=== PATIENT | female | born 1940 | race Two or more races ===

== ENCOUNTER → 2017-06-12 | Outpatient (CLI) | payer OTHER | LOC: CIMAGING 15:04 | PROVIDERS: ATTEND Family Medicine | DX: M79.671 Pain in right foot (principal) | CPT/HCPCS: 73630-PO ==

== ENCOUNTER 2017-07-25 10:35 | Inpatient (IN) | payer OTHER ==
[2017-07-25] MEDS ORDERED: LIDOCAINE 1% 2 ML INJ ID PRN (11:16)
[2017-07-25] MEDS ORDERED: LR 1,000 ML IV ONE (11:16)
[2017-07-25] MEDS ORDERED: MIDAZOLAM 2 MG/2 ML VIAL ONE (11:48)
[2017-07-25] MEDS ORDERED: MIDAZOLAM 2 MG/2 ML VIAL IVP ONE (11:49)
--- NOTE | 2017-07-25 12:27 | PDANEPAE ---
ANE History of Present Illness 76 year old female right ankle arthroplsty. ANE Past Medical History - Cardiovascular History Hx Hypertension: Yes Hx Arrhythmias: No Hx Chest Pain: No Hx Coronary Artery / Peripheral Vascular Disease: No Hx CHF / Valvular Disease: No Hx Palpitations: No - Pulmonary History Hx COPD: No Hx Asthma/Reactive Airway Disease: Yes Hx Recent Upper Respiratory Infection: No Hx Oxygen in Use at Home: No Hx Sleep Apnea: No Sleep Apnea Screening Result - Last Documented: Negative Pulmonary History Comment: uses Flovent PRN-w/URI - Neurologic History Hx Cerebrovascular Accident: No Hx Seizures: No Hx Dementia: No - Endocrine History Hx Diabetes: No Hypothyroid: Yes Endocrine History Comment: hypothyroid- on RX - Renal History Hx Renal Disorders: No - Liver History Hx Hepatic Disorders: No - Neurological & Psychiatric Hx Hx Neurological and Psychiatric Disorders: No - Cancer History Hx Cancer: No - Congenital Disorder History Hx Congenital Disorders: No - GI History Hx Gastrointestinal Disorders: No Gastrointestinal History Comment: occ heartburn - Other Health History Other Health History: OA R ankle. osteopenia - Chronic Pain History Chronic Pain: Yes - Surgical History Prior Surgeries: R ankle fx '04 ANE Review of Systems Review of systems is: negative Review of Systems: - Exercise capacity Exercise capacity: >=4 METS METS (RN): 4 METS ANE Patient History - Allergies Allergies/Adverse Reactions: oxycodone [From OxyContin] Allergy (Verified 07/19/17 16:21) Vomiting oxycodone HCl [From Percocet] Allergy (Verified 07/19/17 16:21) Vomiting - Home Medications Home medications: home medication list seen and reviewed Home Medications: Flovent Diskus 07/19/17 [Last Taken 07/23/17] Hydrochlorothiazide 07/19/17 [Last Taken 07/25/17 07:30] Levoxyl 07/19/17 [Last Taken 07/25/17 07:30] Montelukast Sodium 07/19/17 [Last Taken 07/11/17] - NPO status NPO Status: no food or drink >8 hours NPO Since - Liquids (Date): 07/25/17 NPO Since - Liquids (Time): 07:30 NPO Since - Solids (Date): 07/24/17 NPO Since - Solids (Time): 20:00 - Anes Hx Anes Hx: no prior problems - Smoking Hx Smoking Status: Never smoked Marijuana use: No - Alcohol Use Alcohol Use: None - Family Anes Hx Family Anes Hx: neg - N/A ANE Labs/Vital Signs - Vital Signs Vital Signs: reviewed preoperatively; see RN documention for details Blood Pressure: 153/93 Heart Rate: 72 Respiratory Rate: 18 O2 Sat (%): 92 Height: 157.48 cm Weight: 81.647 kg ANE Physical Exam - Airway Neck exam: FROM Mallampati Score: Class 3 Mouth exam: dentures Mouth image: 1 - veneers - Pulmonary Pulmonary: no respiratory distress - Cardiovascular Cardiovascular: regular rate and rhythym - ASA Status ASA Status: II ANE Anesthesia Plan Anesthesia Plan: general endotracheal anesthesia, GA w LMA Total IV Anesthesia: No
[2017-07-25] MEDS ORDERED: ceFAZolin 2 GM/SWFI 2 GM/20 ML SYR IVP ONE (12:30)
--- NOTE | 2017-07-25 12:30 | PDHPUP ---
History & Physical Update H&P update statement: This history and physical update is based on an assessment of the patient which was completed after admission or registration (within 24 hours), but prior to the surgery/procedure.
[2017-07-25] MEDS ORDERED: PROPOFOL 200 MG/20 ML VIAL ONE (13:02)
[2017-07-25] MEDS ORDERED: fentaNYL 100 MCG/2 ML INJ ONE (13:02)
[2017-07-25] MEDS ORDERED: ROCURONIUM 50 MG/5 ML VIAL ONE (13:20)
[2017-07-25] MEDS ORDERED: DEXAMETHASONE 4 MG/ML VIAL ONE (13:20)
[2017-07-25] MEDS ORDERED: LIDOCAINE 2% 5 ML SDV ONE (13:20)
[2017-07-25] MEDS ORDERED: ONDANSETRON 4 MG/2 ML VIAL ONE (13:20)
[2017-07-25] MEDS ORDERED: fentaNYL 100 MCG/2 ML INJ IVP PRN (15:49)
[2017-07-25] MEDS ORDERED: HYDROCODONE/APAP 5/325 TAB PO PRN (15:49)
[2017-07-25] MEDS ORDERED: NALOXONE HCL 0.4 MG/ML INJ IVP PRN (15:49)
[2017-07-25] MEDS ORDERED: ONDANSETRON 4 MG/2 ML VIAL IVP PRN (15:49)
[2017-07-25] MEDS ORDERED: epHEDrine SULFATE 10 MG/ML SYR IVP PRN (15:49)
[2017-07-25] MEDS ORDERED: LABETALOL HCL 5 MG/ML 20 ML MDV IVP PRN (15:49)
[2017-07-25] MEDS ORDERED: PHENYLEPHRINE HCL 100 MCG/ML SYR IVP PRN (15:49)
[2017-07-25] MEDS ORDERED: LR 500 ML IV PRN (15:49)
[2017-07-25] MEDS ORDERED: HYDROmorphONE/DILAUDID 1 MG/ML INJ IVP PRN (16:53)
[2017-07-25] MEDS ORDERED: oxyCODONE IR 5 MG TAB PO PRN (16:53)
--- NOTE | 2017-07-25 16:56 | POSTOPPROG ---
Post Op Note Date of Operation: 07/25/17 Surgeon: Steven Tobar Counseling Director: Lali Anesthesia: GET(General Endotracheal) Pre-op Diagnosis: R ankle djd Post-op Diagnosis: same Indication: above Procedure: R TAA Findings: djd Inf/Abcess present in the surg proc area at time of surgery?: No EBL: 50-100
[2017-07-25] MEDS ORDERED: ROPIVACAINE 0.2% 1,100 MG in PUMP SET 1 EA NB SCH (18:30)
--- NOTE | 2017-07-25 18:45 | POSTANESTH ---
Post Anesthetic Evaluation Cardiovascular Status: Normal, Stable, Similar to Pre-Op Cond Respiratory Status: Normal, Stable, Similar to Pre-op Cond. Level of Consciousness/Mental Status: Can Participate in Eval, Alert and Oriented Pain Control: Adequate, Prn Tx Ordered Nausea/Vomiting Control: Adequate, Prn Tx Ordered Complications Possibly Related to Anesthesia: None Noted
[2017-07-25 21:34] VITALS: RESP 16
[2017-07-25] MEDS: ceFAZolin 2 GM/DEXTROSE 100 ML IV SCH (21:53)
[2017-07-26] MEDS: ceFAZolin 2 GM/DEXTROSE 100 ML IV SCH (05:10)
--- NOTE | 2017-07-26 06:54 | SOAPPROG ---
SOAP Progress Note Assessment/Plan: Assessment: POD 1 right total ankle arthroplasty. Doing well. PNB catheter in place. Plan: Patient instructions given for home care of PNB catheter. Ok for discharge from a pain control standpoint. Thanks for the opportunity to care for Ms. Arshad call with questions or concerns. 07/26/17 06:55 07/26/17 06:55 Subjective: Patient seen and examined on the floor. Doing well. Denies pain in the RLE. POD 1 s/p right total ankle arthroplasty. She received single shot popliteal and adductor canal blocks blocks in the preop and a popliteal nerve catheter after the procedure. The ON-Q pump is running at 10cc/hr of 0.2% Ropivicaine. She denies signs of LAST. Has not taken any PRN pain medications. Due for d/c home later this morning. Objective: Vital Signs Temp Pulse Resp BP Pulse Ox 37.1 C 101 H 16 130/62 H 98 07/26/17 03:33 07/26/17 03:33 07/26/17 03:33 07/26/17 03:33 07/26/17 03:33 Laboratory Results 07/26/17 05:25 07/25/17 07/26/17 07/27/17 05:59 05:59 05:59 Intake Total 1000 Output Total 30 Balance 970 Physical Exam - Physical Exam General Appearance: no apparent distress Cardiac/Chest: normal peripheral pulses Skin: warm/dry Neuro/Psych: other (Asensate to light touch in RLE) ICD10 Worksheet Patient Problems: Problems Problem Status Onset Post-operative pain Acute - ICD10 Problem Qualifiers (1) Post-operative pain
[2017-07-26] MEDS ORDERED: ENOXAPARIN 40 MG/0.4 ML SYR SC SCH (09:00)
--- NOTE | 2017-07-26 10:15 | GOP ---
[f rep st] OPERATIVE REPORT DATE OF OPERATION: 07/25/2017 SURGEON: Steven Tobar MD LOAN REVIEW ANALYST: Armando Escalera SA ANESTHESIA: General with popliteal and saphenous block. PREOPERATIVE DIAGNOSIS: Right ankle degenerative joint disease, Achilles contracture. Retained painf ul hardware. POSTOPERATIVE DIAGNOSIS: Right ankle degenerative joint disease, Achilles contracture. Retained pain ful hardware. PROCEDURE PERFORMED: 1. Right total ankle replacement. 2. Right gastrocnemius recession, "Meka procedure.". 3. Right ankle hardware removal, part through separate incision. FINDINGS: SPECIMENS: None. ESTIMATED BLOOD LOSS: 50 mL. INDICATIONS: This a 76-year-old female with advanced end-stage ankle arthritis and deformity, as wel l as flexion contractures and significant pain. Obtained x-rays and CT scan. Counseled her on the ope rative intervention as above. We discussed risks of nerve injury, implant failure, loosening, need fo r fusion, continued pain, need for further hardware removal or failure, need for revision and she apolonia cted to proceed. Informed consent obtained. All questions answers. She was marked preoperatively. DESCRIPTION OF PROCEDURE: She was taken to the operative suite. After a block had been administered per Anesthesia, she was given 2 g Ancef. She was sterilely prepped and draped in normal fashion. Time -out was performed verifying the site, side, location, and there was agreement with the rest of the t eam. She was prepped and draped in normal fashion. Tourniquet was utilized after Esmarch exsanguination. I made an incision over the medial gastroc for a Meka, dissected down the fascia, opened this, prot ected the fascia and neurovascular structures, released the gastroc myotendinous junction, achieving extra dorsiflexion by my financial planning assistant. This wound was thoroughly irrigated and closed later. The anterior approach was made to the ankle over the ankle. I protected neurovascular bundle, worked between the tib ant and the EHL, protecting both the deep and the superficial neurovascular structure s. Dissected down to the ankle which was extremely arthritic. I removed osteophytes with a rongeur an d chisel. I did a deltoid release to help correct deformity and expose the ankle joint. I removed the medial screws through this incision. Through a small lateral incision, separate incision, I removed 2 lateral screws that were in the lateral joint. I made a small hole by the knee for the pin for the guide, placed this pin and then placed the guide over the ankle. I adjusted this fluoroscopically and visually. Pinned this into place, adjusted the height of this and adjusted the length, alignment, an d rotation of this and locked this into place. I sized her out at a 0 and elected for a Leila Talaris 2.1 instrumentation. I placed this cutting block on the tibia and locked it into place. I confirmed this, placed the pins in this for the gutter cuts and then made the tibial cut and then finished the gutter cuts. I removed the anterior portion of the bone. I then put the ankle in a neutral position, used the talar guide, placed this pin. I then used the talus and the paddles, placed this down the tibia and pinned this an d then cut the talus for the posterior cut. I then removed this, placed the anterior guide, pinned t his into position, checked this fluoroscopically and did the anterior reaming. This bone was later us ed for bone graft. I then finished this portion by hand with a rongeur. I placed a lateral chamfer guide on this, pinned this into place, made the plug hole for the 0 talus and then the lateral chamfer guide. I thoroughly irrigated this, removed all the bone off the tibia and talus sides. I cleaned out the gutters from f urther deltoid release. I selected the final implants and irrigated this after trialing this, and preparing the tibia, keel h ole and slot holes. I then placed the talus and checked the rotation of this and then I malleted this into position. It was stable. I selected the 8 mm poly with the tibia, placed this, locked this into the tibia and placed the tibial component obtaining x-rays as I went. This was implanted in a stable position. Her ankle had good range of motion and good alignment and stability. She was thoroughly ir rigated. Tourniquet was released. I closed the wounds with #1 Vicryl, 0 Vicryl, 2-0 Vicryl, 3-0 Quill , and Dermabond. She was taken to PACU in a splint in stable condition. IMPLANTS: A Leila Talaris 0 tibia, 0 talus and 8 mm double-0 poly. COMPLICATIONS: None. DRAINS: None. CONDITION: Stable. /[id number]/MODL
[2017-07-26] MEDS: HYDROCODONE/APAP 5/325 TAB PO PRN ×2 (13:41→17:35)
--- NOTE | 2017-07-26 14:14 | PDIAF ---
- Diagnosis Code Status: Full Code - Medication Management Discharge Medications: Medications to Continue on Transfer Fluticasone Hfa 110 Mcg [Flovent 110 MCG Hfa MDI (*)] 1 puffs IH BID PRN [Last Taken 07/18/17] Hydrochlorothiazide [HCTZ (*)] 12.5 mg PO DAILY 07/25/17 [Last Taken 07/25/17] Levothyroxine [Synthroid 25 mcg (*)] 25 mcg PO DAILY06 07/25/17 [Last Taken 04/03] Multivitamins [Multivitamin (*)] 1 each PO DAILY 07/25/17 [Last Taken Unknown] Aspirin EC [Aspirin EC 325 mg (*)] 325 mg PO DAILY #14 tab 07/26/17 [Last Taken Unknown] Hydrocodone/APAP 5/325 [[place] 5/325 (*)] 1 - 2 tab PO Q6 PRN tab 07/26/17 [ Last Taken Unknown] oxyCODONE IR [Oxycodone Ir (*)] 5 - 10 mg PO Q4HRS PRN tab 07/26/17 [Last Taken Unknown] Discharge Medications: Refer to the Discharge Home Medication list for PRN reason. - Orders Services needed: Registered Nurse, Certified Independent Jeweler, Physical Therapy, Occupational Therapy Diet Recommendation: no restrictions on diet Diet Texture: Regular Texture Diet Activity/Weight Bearing Restrictions: RLE non wt bearing. ice. elevate. keep dry. f/u as scheduled - Follow Up Care Current Providers and Referrals: Yessenia Ortiz DO [Primary Care Provider] -
--- NOTE | 2017-07-26 14:46 | GDS ---
[f rep st] DISCHARGE SUMMARY REASON FOR HOSPITALIZATION: Status post right total ankle replacement. HOSPITAL COURSE: She was admitted after a right total ankle replacement. She recovered well, having her pain controlled, and met criteria for discharge to a ch[facility] facility. She otherwise wa s doing quite well. PROCEDURE PERFORMED: Right total ankle replacement. CONSULTING PHYSICIANS: None. DISPOSITION: Skilled nurse facility [facility]. She was sent out on her previous home medicat ion and given prescriptions for oxycodone for pain medication. She did have this listed as an allerg y; however, this was for nausea, and we gave her antiemetics, and she did fine with this. She is to elevate the right lower extremity. She is nonweightbearing. She will keep this dry. She will take 1 aspirin 325 mg p.o. daily for 2 weeks for DVT prophylaxis. She is to call or come back to the hosp ital if she has symptoms of chest pain, shortness of breath, with concern for blood clot or other con cerns. /[id number]/MODL
--- NOTE | 2017-07-26 15:21 | ASMTCMCOM ---
CM Note CM Note Notes: Pt medically stable for d/c to [facility]. WC van set up by [facility] for 1700. Orders sent in [employer]. Pt dghtr Josh updated. Date Signed: 07/26/2017 03:21 PM Electronically Signed By:AYAN Raza
[2017-07-26 16:37] VITALS: BP 149/79; PULSE 68; TEMP 98.1; O2SAT 98
--- NOTE | 2017-07-27 10:44 | ASDISCHSUM ---
Discharge Information Plan Status:SNF Medically Cleared to Leave: Discharge Date:07/26/2017 06:04 PM CM D/C Disposition:Long-Term Facility ADT D/C Disposition:Long-Term Facility Projected Discharge Date:07/26/2017 11:00 AM Transportation at D/C:Wheelchair Van Discharge Delay Reason: Follow-Up Date:07/26/2017 11:00 AM Discharge Slot: Final Diagnosis: Placement Information Referral Type:*Prison/SNF Referral ID:[id number] Provider Name:Henny Arora Docena Address 1:[address] [place] Phone Number: Address 2: Fax Number: [facility]ena Selection Factors: State:[place] Patient Contact Information Contact Name:ARELIS Relationship:Daughter Address:[address] City:[place] Alternate Phone: State/Zip Code:[place] [address] Email: Financial Information Financial Class:Medicare Advantage Plans Primary Plan Desc:[facility] ADVANTAGE PLANS Primary Plan Number:[id number] Secondary Plan Desc: Secondary Plan Number: Assessment Information BC CM Progress Note CM Note CM Note Notes: Pt medically stable for d/c to [facility]. WC van set up by [facility] for 1700. Orders sent in [employer]. Pt dgr Josh updated. Date Signed: 07/26/2017 03:21 PM Electronically Signed By:AYAN Raza Intervention Information Intervention Type:*Incorrect Registration Date of Service:07/26/2017 08:31 AM Patient Type:Observation Staff Member:CLARICE Leigh, Sveta Hours: Discipline: Severity: Comment:
== END 2017-07-26 18:04 | DRG 469 ==
LOC: OBSVTOIN 10:35 → F3N 10:35
PROVIDERS: ADMIT Orthopaedic Surgery; ATTEND Orthopaedic Surgery
DX: M19.071 Primary osteoarthritis, right ankle and foot (principal); T84.84XA Pain due to internal orthopedic prosthetic devices, implants and grafts, initial encounter; M24.571 Contracture, right ankle; Q79.8 Other congenital malformations of musculoskeletal system; J45.30 Mild persistent asthma, uncomplicated
CPT/HCPCS: 97116-GP; 97162-GP; 97165-GO; G8978-GP-CK; G8979-GP-CI; G8987-GO-CK; G8988-GO-CJ; J0690; J1100; J1650; J2250; J2370; J2405; J2704; J2795; J3010

== ENCOUNTER → 2018-01-19 | Outpatient (CLI) | payer OTHER | LOC: FIMAGING 10:09 | PROVIDERS: ATTEND Family Medicine | DX: Z12.31 Encounter for screening mammogram for malignant neoplasm of breast (principal) ==